=== PATIENT | female | born 1970 | race Caucasian/White ===

== ENCOUNTER → 2024-08-24 | Outpatient (CLI) | payer BC, SELFPAY ==
--- NOTE | 2024-08-24 13:15 | XR_ITS ---
Examination: Screening digital mammography, bilateral Computer aided detection 3-D breast Tomosynthesis, bilateral Date and time of exam: August 24, 2024 1312 hours Compared to mammograms dating to April 15, 2021 Indication: Screening Technique: Nonmagnified MLO, CC views of the breasts to been obtained, reconstructed from 3-D Tomosynthesis images. R2 computer aided detection program utilized for evaluation of suspicious masses and/or abnormal calcifications. 3-D Tomosynthesis images obtained. Findings: The breasts are heterogeneously dense, which may obscure small masses 7 mm focal asymmetry slightly inner right breast CC view, 7 cm from the nipple Benign calcifications Impression: BI-RADS Category 0: Incomplete: Need additional imaging evaluation 7 mm focal asymmetry slightly inner right breast CC view, 7 cm from the nipple, recommend follow-up spot tomographic CC view as well as spot tomographic MLO view inferior right breast, right breast sonography to complete the workup
== END | disposition home or self-care (01) ==
LOC: CDIM 13:06
PROVIDERS: PCP Family Medicine; Referring Provider Family Medicine; Visit Provider Family Medicine
DX: Z12.31 Encounter for screening mammogram for malignant neoplasm of breast (principal); R92.1 Mammographic calcification found on diagnostic imaging of breast; N64.89 Other specified disorders of breast
CPT/HCPCS: 77063; 77067

== ENCOUNTER → 2024-09-20 | Outpatient (CLI) | payer BC, SELFPAY ==
--- NOTE | 2024-09-20 | XR_ITS ---
Examination: Breast ultrasound, unilateral, right complete Date and time of exam: 2024 0744 hours INDICATIONS: Mammogram August 24, 2024 7 mm focal asymmetry inner right breast Technique: Real-time joaquin scale ultrasonographic imaging performed right breast including all 4 quadrants as well as nipple retroareolar and axillary region. Findings: 10:00 oval mass circumscribed 6 x 7 mm Axillary lymph node which appears normal IMPRESSION: BI-RADS Category 3: Probably benign findings One additional 6 month right breast sonogram follow-up is needed to document stability of 10:00 solid nodule described above
--- NOTE | 2024-09-20 08:15 | XR_ITS ---
Examination: Diagnostic digital mammography, unilateral, right Computer aided detection 3-D breast Tomosynthesis, unilateral Date and time of exam: September 20, 2024 0808 hours INDICATIONS: Mammogram August 24, 2024 7 mm focal asymmetry inner right breast CC view, 7 cm from the nipple Technique: Nonmagnified MLO, CC views of the right breast have been obtained, reconstructed from 3-D Tomosynthesis images. R2 computer aided detection program utilized for evaluation of suspicious masses and/or abnormal calcifications. 3-D Tomosynthesis images obtained. Findings: The breast is heterogeneously dense, which may obscure small masses 6 mm nodule is depicted upper right breast, likely corresponding to 10:00 nodule 6 x 7 mm described on the right breast sonogram today Impression: BI-RADS category 3: Probably benign findings One additional 6 month right mammogram follow-up is needed
== END | disposition home or self-care (01) ==
LOC: CDIM 07:13
PROVIDERS: PCP Family Medicine; Referring Provider Family Medicine; Visit Provider Family Medicine
DX: R92.331 Mammographic heterogeneous density, right breast (principal); N63.11 Unspecified lump in the right breast, upper outer quadrant
CPT/HCPCS: 76641; 77061; 77065; G0279

== ENCOUNTER → 2025-04-13 | Outpatient (CLI) | payer BC, SELFPAY ==
--- NOTE | 2025-04-13 08:00 | XR_ITS ---
Examination: Breast ultrasound, unilateral, right Date and time of exam: April 13, 2025 0750 hours INDICATIONS: Right breast sonogram September 20, 2024 10:00 nodule 7 mm right breast Technique: Real-time joaquin scale ultrasonographic imaging performed right breast including all 4 quadrants as well as nipple retroareolar and axillary region. Findings: 10:00 nodule circumscribed 6 x 6 mm IMPRESSION: BI-RADS Category 2: Benign findings
--- NOTE | 2025-04-13 08:30 | XR_ITS ---
Examination: Diagnostic digital mammography, unilateral, right Computer aided detection 3-D breast Tomosynthesis, unilateral Date and time of exam: 04/13/2025, 7:59 AM Comparisons: May 2021 through September 2024 Indications: Six-month interval follow-up right breast nodule. Technique: Nonmagnified MLO, CC views of the right breast have been obtained, reconstructed from 3-D Tomosynthesis images. R2 computer aided detection program utilized for evaluation of suspicious masses and/or abnormal calcifications. 3-D Tomosynthesis images obtained. Technologist: Findings: The breasts are heterogeneously dense, which may obscure small masses. Previously described upper right breast nodules not seen on today's exam. There are grouped amorphous calcifications 9:00. No other focal abnormality seen. Impression: Grouped amorphous calcifications 9:00 right breast represent a suspicious abnormality. Stereotactic biopsy is recommended. BI-RADS category 4: Suspicious abnormality, biopsy recommended
== END | disposition home or self-care (01) ==
PROVIDERS: PCP Family Medicine; Referring Provider Family Medicine; Visit Provider Family Medicine
DX: R92.341 Mammographic extreme density, right breast (principal); R92.1 Mammographic calcification found on diagnostic imaging of breast
CPT/HCPCS: 76641; 77061; 77065; G0279

== ENCOUNTER → 2025-05-17 | Outpatient (CLI) | payer BC, SELFPAY ==
--- NOTE | 2025-05-17 | XR_ITS ---
EXAMINATION: Cervical spine, 5 6 views views Technique: Cervical spine AP, AP odontoid, lateral, bilateral obliques, swimmer's lateral 6 views 5 views Exam date and time: May 17, 2025 1053 hours INDICATIONS: Neck pain months FINDINGS: Reversal normal cervical doses. No cervical fracture. Intact odontoid. Advanced degenerative disc disease C4-C5, C5-C6, C6-C7 with moderate to advanced bilateral neural foraminal stenosis at these levels IMPRESSION: Advanced degenerative disc disease C4-C5, C5-C6, C6-C7 with moderate to advanced bilateral neural foraminal stenosis at these levels
--- NOTE | 2025-05-17 | XR_ITS ---
Examination: Shoulder bilateral, 6 views Technique: Shoulder AP internal rotation, AP external rotation, Y view each shoulder total 6 views Exam date and time :May 17, 2025 1059 hours INDICATIONS: Bilateral shoulder pain beginning 2 months ago. FINDINGS: Moderate osteopenia No fracture or dislocation involving either shoulder. Bilateral moderate narrowing glenohumeral joints Prominent left shoulder calcific tendinitis IMPRESSION: Bilateral moderate narrowing glenohumeral joints Prominent left shoulder calcific tendinitis
== END | disposition home or self-care (01) ==
LOC: CDIM 10:41
PROVIDERS: PCP Family Medicine; Referring Provider Family Medicine; Visit Provider Family Medicine
DX: M75.32 Calcific tendinitis of left shoulder (principal); M25.812 Other specified joint disorders, left shoulder; M25.811 Other specified joint disorders, right shoulder; M50.321 Other cervical disc degeneration at C4-C5 level; M48.02 Spinal stenosis, cervical region
CPT/HCPCS: 72050; 73030